=== PATIENT | female | born 1990 | race Caucasian/White ===

== ENCOUNTER → 2019-06-11 15:59 | Outpatient (CLI) | payer OTHER, SELFPAY ==
[2019-06-11 16:30] LABS: Add Manual Diff / Slide Review NO; Basophils Absolute Auto 0 /uL (0-100); Basophils Percent Auto 0.5 % (0-2); Eosinophils Absolute Auto 100 /uL (0-450); Eosinophils Percent Auto 1.6 % (2-4); Hematocrit 29.5 % (36-46); Hemoglobin 9.4 g/dL (12.0-16.0); Lymphocytes Absolute Auto 2100 /uL (1100-4500); Lymphocytes Percent Auto 23.8 % (25-40); Mean Corpuscular HGB Conc 31.8 % (30-36); Mean Corpuscular Hemoglobin 18.7 PG (26-34); Mean Corpuscular Volume 58.7 fL (80-100); Monocytes Absolute Auto 500 /uL (0-900); Monocytes Percent Auto 5.9 % (3-14); Neutrophils Absolute Auto 6100 /uL (1500-7000); Neutrophils Percent Auto 68.2 % (50-75); Platelet Count 267 X10^3/uL (150-400); Red Blood Cell Count 5.02 X10^6/uL (4.0-5.2); Red Cell Distribution Width 16.2 % (11.6-14.8); White Blood Cell Count 8.9 X10^3/uL (4.5-11.0)
[2019-06-11 17:05] LABS: Hypochromasia 1+; Microcytosis 3+; Ovalocytes 1+; Polychromasia 2+; Spherocytes 1+; Tear Drop Cells 1+
[2019-06-11 17:06] LABS: Poikilocytosis 2+
[2019-06-11 17:13] LABS: Appearance Urine UA CLEAR; Bilirubin Urine UA NEGATIVE (NEGATIVE); Color Urine UA YELLOW; Glucose Urine UA NEGATIVE (Negative); Ketones Urine UA NEGATIVE (NEGATIVE); Leukocyte Esterase Urine UA NEGATIVE (NEGATIVE); Nitrite Urine UA NEGATIVE (Negative); Occult Blood Urine UA NEGATIVE (Negative); Protein Urine UA NEGATIVE (Negative); Specific Gravity Urine UA <=1.005 (1.000-1.035); Urobilinogen Urine UA 0.2 E.U./dL (0.2)
[2019-06-11 17:37] LABS: Hepatitis B Surface Antigen NEGATIVE s/c (NEGATIVE); Rubella Antibody IgG 41.9 IU/mL (>15)
[2019-06-11 18:03] LABS: HIV 1 & 2 Ab/Ag 4th Gen Combo NEGATIVE (NEGATIVE); Hep C Virus Ab w/Reflex Quant NEGATIVE s/c (NEGATIVE)
[2019-06-13 17:29] LABS: RPR Screen Nonreactive (Nonreactive)
== END ==
PROVIDERS: PCP Obstetrics & Gynecology; Visit Provider Obstetrics & Gynecology
DX: Z34.01 Encounter for supervision of normal first pregnancy, first trimester (principal)
CPT/HCPCS: 36415; 80055; 81003; 86787; 86803; 86850; 86900; 86901; 87086; 87389

== ENCOUNTER → 2019-06-13 16:06 | Outpatient (CLI) | payer OTHER, SELFPAY ==
[2019-06-13 17:07] LABS: HEMOLYSIS < 15 (0-50); Iron 75 ug/dL (37-170)
[2019-06-13 17:20] LABS: Percent Iron Saturation 22 % (15-50); Total Iron Binding Capacity 348 ug/dL (265-497); Transferrin 290 mg/dL (206-381)
[2019-06-13 17:47] LABS: Ferritin 56.5 ng/mL (6.27-137)
[2019-06-17 18:49] LABS: Hematocrit 29.6 % (35.0-45.0); Hemoglobin 8.8 g/dL (11.7-15.5); MCH 18.7 pg (27.0-33.0); MCV 62.8 fL (80.0-100.0); RBC Total Count 4.71 Million/uL (3.80-5.10); RDW 17.5 % (11.0-15.0)
== END ==
PROVIDERS: PCP Obstetrics & Gynecology; Visit Provider Obstetrics & Gynecology
DX: O99.011 Anemia complicating pregnancy, first trimester (principal)
CPT/HCPCS: 36415; 82728; 83021; 83540; 83550; 85014; 85018; 85041

== ENCOUNTER → 2019-06-28 16:11 | Outpatient (CLI) | payer OTHER, SELFPAY ==
[2019-06-28 18:17] LABS: Vitamin B12 384 pg/mL (239-931)
[2019-07-03 19:01] LABS: Brief History NTD NO; Calc Gestational Age 15.6; Cigarette Smoker NO; Collection Date 110119; Donated Egg NO; Donor Egg Age NO; Estriol, Free 0.83 ng/mL; Inhibin A, Dimeric 74 pg/mL; Maternal Weight 184 lbs; Number of Fetuses 1; Previous Pregnancy Down Syndro NO; hCG, MoM 0.62; hCG, Serum 20.8 IU/mL
== END ==
PROVIDERS: PCP Obstetrics & Gynecology; Visit Provider Obstetrics & Gynecology
DX: Z34.02 Encounter for supervision of normal first pregnancy, second trimester (principal); Z3A.16 16 weeks gestation of pregnancy; D56.3 Thalassemia minor
CPT/HCPCS: 36415; 82105; 82607; 82677; 84702; 86336

== ENCOUNTER → 2019-08-02 10:37 | Outpatient (CLI) | payer OTHER, SELFPAY ==
--- NOTE | 2019-08-02 10:39 | DI.US.S_ITS ---
PROCEDURE: US OB >= 14 WEEKS FETUS INDICATIONS: ANATOMY OUTSIDE/PRIOR DATING DATA: First dating scan (date and location): 08/02/19. Estimated date of delivery (LINO) from first dating scan: 12/13/19. TECHNIQUE: Real-time scanning was performed of the fetus, with image documentation and biometric measurements. COMPARISON: [facility], , OB >= 14 WEEKS FETUS, 07/17/2019, 16:21. FINDINGS: General: A single living intrauterine gestation is present. Presentation: Breech. Placenta: Placental position is posterior, and low lying with the inferior edge of the placenta 2.6 cm above the internal cervical os. Amniotic fluid index: 10.5 cm, normal range is 5-24 cm. heart rate: 141 beats per minute. Maternal cervical canal: 3.5 cm long. Normal lower limit is 2.5 cm. biometrics: Biparietal diameter: 20 weeks 4 days Head circumference: 20 weeks 6 days Abdominal circumference: 21 weeks Femur length: 21 weeks 3 days Estimated gestational age from initial scan: not applicable. Composite gestational age from present scan: 21 weeks 0 days Estimated weight and percentile: 406 g Measurement variability for biometric dating: +/- 7 days from 14 weeks to 15 weeks 6 days gestation, +/- 10 days from 16 weeks to 21 weeks 6 days gestation, +/- 2 weeks from 22 weeks to 27 weeks 6 days gestation, +/- 3 weeks for 28 weeks gestation or later. weight reference: 4500 g or EFW >90/95% is considered macrosomia or large for gestational age. EFW <10% is small for gestational age. EFW 5% or less is considered intra-uterine growth restriction. Anatomic survey: Neuro: Ventricles are non-dilated at less than 10 mm. Cisterna magna is normal at 3-11 mm. Cerebellum is normal in size and morphology. Nuchal skin fold: Normal at less than 6 mm between 14-21 weeks gestational age. Face: Nose and lips, facial profile are normal. Spine: Not well-visualized. Heart: 4-chambered heart is present, with normal ventricular outflow tracts. Diaphragm: Diaphragm is intact. Stomach: Left-sided stomach is present. Kidneys: No hydronephrosis. Normal is less than 5 mm in 2nd trimester, less than 7 mm in 3rd trimester. Cord: 3-vessel cord has orthotopic insertion. Bladder: Normal in size. Extremities: All 4 extremities identified. IMPRESSION: 1. Single living IUP with mean composite gestational age of 21 weeks 0 days corresponding to ultrasound LINO of 12/13/19. 2. spine not well visualized otherwise normal anatomy. 3. Low lying placenta. Followup recommended. Dictated by: Jesús BENDER Interpreted: Cassandra Gomez MD on 08/02/2019 at 12:55 Approved by: Cassandra Gomez M.D. on 08/02/2019 at 14:58
== END ==
PROVIDERS: PCP Obstetrics & Gynecology; Visit Provider Obstetrics & Gynecology
DX: Z34.92 Encounter for supervision of normal pregnancy, unspecified, second trimester (principal); Z3A.21 21 weeks gestation of pregnancy
CPT/HCPCS: 76811

== ENCOUNTER → 2019-09-16 12:28 | Outpatient (CLI) | payer OTHER, SELFPAY ==
--- NOTE | 2019-09-16 12:29 | DI.US.S_ITS ---
PROCEDURE: US OB FOLLOW UP INDICATIONS: FOLLOW-UP L/S SPINE OUTSIDE/PRIOR DATING DATA: First dating scan (date and location): 08/02/19. Estimated date of delivery (LINO) from first dating scan: 12/13/19.. TECHNIQUE: Real-time scanning was performed of the fetus, with image documentation and biometric measurements. Endovaginal scanning: No COMPARISON: [facility], OB >= 14 WEEKS FETUS, 08/02/2019, 10:55. FINDINGS: General: A single living intrauterine gestation is present. Presentation: Vertex. Placenta: Placental position is posterior, and low lying. Amniotic fluid index: 14.1 cm, normal range is 5-24 cm. heart rate: 141 beats per minute. Maternal cervical canal: 3.5 cm long. Normal lower limit is 2.5 cm. Other: Normal spine. IMPRESSION: 1. Single living IUP redemonstrated. 2. Normal appearance of the spine. 3. Low lying placenta is redemonstrated with the inferior margin of the placenta 1.3 cm and the internal cervical os. Follow up recommended. Dictated by: Jesús Rivera [place] Interpreted: Thad Martinez MD on 09/16/2019 at 13:40 Approved by: Thad Martinez M.D. on 09/16/2019 at 20:54
== END ==
PROVIDERS: PCP Obstetrics & Gynecology; Visit Provider Obstetrics & Gynecology
DX: Z36.2 Encounter for other antenatal screening follow-up (principal); O44.42 Low lying placenta NOS or without hemorrhage, second trimester; Z3A.27 27 weeks gestation of pregnancy
CPT/HCPCS: 76816

== ENCOUNTER → 2019-09-17 16:04 | Outpatient (CLI) | payer OTHER, SELFPAY ==
[2019-09-17 17:54] LABS: Hemoglobin 7.8 g/dL (12.0-16.0)
[2019-09-17 18:15] LABS: GTT (PREG) 1 Hour PP 50gm Dose 154 mg/dL (76-139)
[2019-09-17 18:29] LABS: Hypochromasia 2+; Microcytosis 3+; Polychromasia 1+; Tear Drop Cells 2+
== END ==
PROVIDERS: PCP Obstetrics & Gynecology; Visit Provider Obstetrics & Gynecology
DX: Z34.02 Encounter for supervision of normal first pregnancy, second trimester (principal)
CPT/HCPCS: 36415; 82950; 85014; 85018

== ENCOUNTER → 2019-09-26 07:07 | Outpatient (CLI) | payer OTHER, SELFPAY ==
[2019-09-26 08:30] LABS: HEMOLYSIS < 15 (0-50); Iron 130 ug/dL (37-170)
[2019-09-26 08:31] LABS: Glucose Fasting Gestational 78 mg/dL (76-95)
[2019-09-26 08:42] LABS: Percent Iron Saturation 35 % (15-50); Total Iron Binding Capacity 372 ug/dL (265-497); Transferrin 328 mg/dL (206-381)
[2019-09-26 10:00] LABS: Glucose 1 Hour Gest 165 mg/dL (76-180)
[2019-09-26 10:42] LABS: Glucose Tol Interp,Gestational INTERPRETATION
[2019-09-26 11:15] LABS: Glucose 2 Hour Gest 137 mg/dL (76-155)
[2019-09-26 11:23] LABS: Glucose 3 Hour Gest 97 mg/dL (76-140)
== END ==
PROVIDERS: Visit Provider Obstetrics & Gynecology
DX: D56.3 Thalassemia minor (principal); O99.012 Anemia complicating pregnancy, second trimester; R73.09 Other abnormal glucose; Z34.92 Encounter for supervision of normal pregnancy, unspecified, second trimester
CPT/HCPCS: 36415; 82951; 82952; 83540; 83550

== ENCOUNTER → 2019-10-04 16:27 | Outpatient (CLI) | payer OTHER, SELFPAY ==
[2019-10-04 18:19] LABS: Add Manual Diff / Slide Review NO; Basophils Absolute Auto 0 /uL (0-100); Basophils Percent Auto 0.3 % (0-2); Eosinophils Absolute Auto 100 /uL (0-450); Eosinophils Percent Auto 1.5 % (2-4); Hematocrit 27.9 % (36-46); Lymphocytes Absolute Auto 2700 /uL (1100-4500); Mean Corpuscular HGB Conc 32.3 % (30-36); Mean Corpuscular Hemoglobin 19.3 PG (26-34); Mean Corpuscular Volume 59.8 fL (80-100); Monocytes Absolute Auto 500 /uL (0-900); Monocytes Percent Auto 5.5 % (3-14); Neutrophils Absolute Auto 6200 /uL (1500-7000); Neutrophils Percent Auto 64.7 % (50-75); Platelet Count 250 X10^3/uL (150-400); Red Blood Cell Count 4.67 X10^6/uL (4.0-5.2); Red Cell Distribution Width 16.3 % (11.6-14.8); White Blood Cell Count 9.6 X10^3/uL (4.5-11.0)
[2019-10-04 18:26] LABS: Aspartate Aminotransferase 27 IU/L (14-36); Blood Urea Nitrogen 9 mg/dL (7-17); Estimated Glomerular Filt Rate > 60.0 mL/min (>60); Uric Acid 4.2 mg/dL (2.5-6.2)
[2019-10-04 18:35] LABS: Anisocytosis 2+; Hypochromasia 1+; Poikilocytosis 2+; Tear Drop Cells 2+
[2019-10-04 18:54] LABS: Creatinine Urine Random 23.2 mg/dL; Protein (Total) Urine Random 11 mg/dL (0-12); Protein Creatinine Ratio Urine 0.47 GRAM/24H
[2019-10-04 19:00] LABS: Ferritin 21.5 ng/mL (6.27-137)
== END ==
PROVIDERS: Referring Provider Obstetrics & Gynecology; Visit Provider Obstetrics & Gynecology
DX: D56.3 Thalassemia minor (principal)
CPT/HCPCS: 36415; 82570; 82728; 84156; 84450; 84550; 85025

== ENCOUNTER 2019-10-09 15:55 | Inpatient (IN) | payer OTHER, SELFPAY ==
--- NOTE | 2019-10-09 | DI.US.S_ITS ---
PROCEDURE: US OB LIMITED INDICATIONS: PREECLAMPSIA, FOR BPP AND GROWTH OUTSIDE/PRIOR DATING DATA: First dating scan (date and location): 08/02/19. Estimated date of delivery (LINO) from first dating scan: 12/13/19. TECHNIQUE: Real-time scanning was performed of the fetus, with image documentation and biometric measurements. Biophysical profile was also obtained. Endovaginal scanning: Not done. COMPARISON: [facility] OB >= 14 WEEKS FETUS, 07/17/2019, 16:21. [facility] OB >= 14 WEEKS FETUS, 08/02/2019, 10:55. [facility] OB FOLLOW UP, 09/16/2019, 13:01. FINDINGS: General: A single live intrauterine gestation is present. Presentation: Vertex. Placenta: Placental position is posterior, without previa. However, the inferior placental edge is seen 3.1 cm from the internal cervical os. Amniotic fluid index: 18.9 cm, normal range is 5-24 cm. heart rate: 133 beats per minute. Maternal cervical canal: 4.2 cm long. Normal lower limit is 2.5 cm. biometrics: Biparietal diameter: 7.7 cm equals 31 weeks 0 days Head circumference: 28.6 cm equals 31 weeks 3 days Abdominal circumference: 26.6 cm equals 30 weeks 5 days Femur length: 6 cm equals 31 weeks 1 day Estimated gestational age from initial scan: 30 weeks 5 days Composite gestational age from present scan: 30 weeks 6 days Estimated weight and percentile: 1673 g, 46% Measurement variability for biometric dating: +/- 7 days from 14 weeks to 15 weeks 6 days gestation, +/- 10 days from 16 weeks to 21 weeks 6 days gestation, +/- 2 weeks from 22 weeks to 27 weeks 6 days gestation, +/- 3 weeks for 28 weeks gestation or later. weight reference: 4500 g or EFW >90/95% is considered macrosomia or large for gestational age. EFW <10% is small for gestational age. EFW 5% or less is considered intra-uterine growth restriction. Biophysical profile: Tone: 2 points. Movement: 2 points. Respiration: 2 points. Largest pocket of fluid: 2 points. IMPRESSION: Normal biophysical profile, 8/8 points. Normal interval growth when compared to the prior ultrasound examination. There is no placenta previa, although the inferior edge of the placenta is seen 3.1 cm from the internal cervical os. Dictated by: Clarence Ovalle M.D. on 10/09/2019 at 16:44 Approved by: Clarence Ovalle M.D. on 10/09/2019 at 16:46
[2019-10-09 16:32] LABS: Add Manual Diff / Slide Review NO; Basophils Absolute Auto 0 /uL (0-100); Basophils Percent Auto 0.4 % (0-2); Eosinophils Absolute Auto 100 /uL (0-450); Eosinophils Percent Auto 1.3 % (2-4); Hematocrit 26.8 % (36-46); Hemoglobin 8.6 g/dL (12.0-16.0); Lymphocytes Absolute Auto 2400 /uL (1100-4500); Lymphocytes Percent Auto 23.1 % (25-40); Mean Corpuscular HGB Conc 32.1 % (30-36); Mean Corpuscular Hemoglobin 19.3 PG (26-34); Monocytes Absolute Auto 600 /uL (0-900); Monocytes Percent Auto 5.6 % (3-14); Neutrophils Absolute Auto 7200 /uL (1500-7000); Neutrophils Percent Auto 69.6 % (50-75); Platelet Count 210 X10^3/uL (150-400); Red Blood Cell Count 4.47 X10^6/uL (4.0-5.2); Red Cell Distribution Width 16.3 % (11.6-14.8); White Blood Cell Count 10.3 X10^3/uL (4.5-11.0)
[2019-10-09 16:49] LABS: Aspartate Aminotransferase 24 IU/L (14-36); Blood Urea Nitrogen 9 mg/dL (7-17); Estimated Glomerular Filt Rate > 60.0 mL/min (>60); Uric Acid 4.4 mg/dL (2.5-6.2)
[2019-10-09 16:50] LABS: Hypochromasia 2+; Microcytosis 2+; Poikilocytosis 2+; Polychromasia 2+; Tear Drop Cells 2+
[2019-10-09 16:51] LABS: Basophilic Stippling 2+
--- NOTE | 2019-10-09 17:52 | PM.OBHP.1 ---
OB HPI Date/Time Date of admission: 10/09/19 Date Patient Seen: 10/09/19 Time Patient Seen: 18:04 History of Present Condition Chief complaint: Observation : 1 Para: 0 Estimated Date of Delivery: 12/16/19 Estimated Gestational Age (weeks): 30 Narrative: This patient is a 28-year-old at 30 weeks 2 days by LMP concordant with 1st trimester ultrasound, presenting with preeclampsia without severe features. The patient presented for routine care, and was found to have new onset hypertension. The patient had no symptoms of -induced hypertension, her blood pressure resolved to normal on observation, and she was sent for outpatient preeclampsia labs. These results revealed proteinuria with no other abnormalities, and she was brought back to the clinic for blood pressure check. This was also elevated, meeting diagnostic criteria. She continues to have no headaches, visual changes, right upper quadrant pain, chest pain, trouble breathing, increased swelling, decreased movement, or other obstetrical complaints. The patient's preeclampsia labs are otherwise stable, and testing has been reassuring with a 10/10 BPP, TALA of 18, and EFW of 1673 g, 46 percentile. The patient's has been complicated by beta thalassemia trait, which runs in her family and was diagnosed on new OB labs. Her iron studies have been within normal limits, her hemoglobin has been largely stable, and she has been on folic acid supplementation since presenting for care, with the dose increased once this diagnosis was made. The patient had a low lying placenta that is since resolved. She has otherwise had adequate care with no abnormal findings. She has no other contributory medical, surgical, or family history. Indications Other reason(s) for admission: Preeclampsia without severe features History of Present care: good care Dating criteria: LMP confirmed by 1st trimester US Ultrasounds: normal 1st trimester US and normal mid trimester US Abnormal ultrasound findings: Low lying placenta, now resolved with placenta >3cm from cervical os Obstetrical complications: preeclampsia Medical complications: none Preadmission Labs Blood type: O (+) positive -: Antibody screen: negative, GBS status: unknown, HBsAG: negative, HIV: negative and RPR/VDLR: negative -: Chlamydia screen: not detected and Gonorrhea screen: not detected -: Rubella: immune HCAB: negative Quad screen: Normal Evaluation Evaluation Baseline heart rate: 125 Variability: Moderate (11-25) monitor accelerations: Present monitor decelerations: Absent Category of Tracing: I Laboratory results: Laboratory Tests 10/09/19 10/09/19 16:21 16:21 WBC 10.3 RBC 4.47 Hgb 8.6 L Hct 26.8 L MCV 60.0 L MCH 19.3 L MCHC 32.1 RDW 16.3 H Plt Count 210 Neut % (Auto) 69.6 Lymph % (Auto) 23.1 L [place] % (Auto) 5.6 Eos % (Auto) 1.3 L Baso % (Auto) 0.4 Neut # (Auto) 7200 H Lymph # (Auto) 2400 [place] # (Auto) 600 Eos # (Auto) 100 Baso # (Auto) 0 RBC Morphology See below Polychromasia 2+ H Hypochromasia 2+ H Poikilocytosis 2+ H Basophilic Stippling 2+ H Microcytosis 2+ H Tear Drop Cells 2+ H BUN 9 Creatinine 0.60 Estimated GFR > 60.0 BUN/Creatinine Ratio 15.0 Uric Acid 4.4 AST 24 Comments: BPP 06/06, cephalic presentation. TALA 18cm. Posterior placenta. EFW 1673g, 46% PFSH Medical History Beta thalassemia minor (Acute) Surgical History History of tonsillectomy (Acute) Meds Home Medications and Allergies Home Medications Medication Instructions Recorded Confirmed Type folic acid 1 mg tablet 5 mg PO DAILY #150 tab 06/18/19 06/18/19 Rx Allergies Allergy/AdvReac Type Severity Reaction Status Date / Time Penicillins Allergy Severe Severe Verified 06/13/19 17:41 Hives Review of Systems Constitutional Constitutional: Reports system reviewed and no additional complaints, except as documented Eyes Eyes: Reports system reviewed; no additional complaints, except as documented ENT Ears, Nose, Mouth, and Throat: Yes system reviewed; no additional complaints, except as documented Cardiovascular Cardiovascular: Reports system reviewed; no additional complaints, except as documented Respiratory Respiratory: Reports system reviewed and no additional complaints, except as documented Gastrointestinal Gastrointestinal: Reports system reviewed and no additional complaints, except as documented Genitourinary Genitourinary: Reports system reviewed and no additional complaints, except as documented Musculoskeletal Musculoskeletal: Reports system reviewed; no additional complaints, except as documented Neurologic Neurologic: Reports system reviewed and no additional complaints, except as documented Hematologic/Lymphatic Hematologic/Lymphatic: Reports system reviewed and no additional complaints, except as documented Exam Const General: cooperative, healthy appearing and comfortable Orientation: alert, awake and oriented x3 Eyes General: appearance normal, both eyes and all related structures Resp Effort & Inspection: normal respiratory effort Auscultation: clear to auscultation bilaterally Cardio Rate: regular rate Rhythm: regular rhythm GI Palpation: soft and No tender Skin General: no rashes or lesions noted Extrem General: pedal edema (1+) Right upper extremity: edema (trace) Left upper extremity: edema (trace) Objective Labs Result Diagrams: 10/09/19 16:21 10/09/19 16:21 Labs: Laboratory Results - last 24 hr 10/09/19 10/09/19 16:21 16:21 WBC 10.3 RBC 4.47 Hgb 8.6 L Hct 26.8 L MCV 60.0 L MCH 19.3 L MCHC 32.1 RDW 16.3 H Plt Count 210 Neut % (Auto) 69.6 Lymph % (Auto) 23.1 L [place] % (Auto) 5.6 Eos % (Auto) 1.3 L Baso % (Auto) 0.4 Neut # (Auto) 7200 H Lymph # (Auto) 2400 [place] # (Auto) 600 Eos # (Auto) 100 Baso # (Auto) 0 RBC Morphology See below Polychromasia 2+ H Hypochromasia 2+ H Poikilocytosis 2+ H Basophilic Stippling 2+ H Microcytosis 2+ H Tear Drop Cells 2+ H BUN 9 Creatinine 0.60 Estimated GFR > 60.0 BUN/Creatinine Ratio 15.0 Uric Acid 4.4 AST 24 Assessment and Plan Assessment and Plan Assessment and Plan narrative: This patient is a 28-year-old at 30 weeks 2 days with first-trimester dating, now meeting diagnostic criteria for preeclampsia without severe features. The patient has had multiple elevated blood pressures, and has proteinuria. The patient has otherwise reassuring status and stable labs, but given her early gestational age, clinical concern for progression to preeclampsia with severe features is high. As [facility] does not have a NICU, the patient is being transferred to [facility] for monitoring for severe features, as should she require delivery, she requires a higher level of care. Betamethasone administration will be deferred until after 's evaluation, with the plan as discussed with the patient for blood pressure monitoring, monitoring, and a 12 hour urine collection. The purpose of betamethasone and the pathophysiology and natural history of preeclampsia was discussed at length the patient, and all questions were answered. The plan was discussed with Dr. Sharp, of [facility]. -transfer to [facility] via ambulance -GBS swab collection deferred to accepting hospital Time Spent with Patient Total time spent with greater than 50% in coordination of care (as documented) at patient's floor/unit and/or counseling patient:: Greater than 35 minutes
[2019-10-09 20:40] VITALS: BP 119/79; PULSE 76; RESP 16; TEMP 36.7
== END 2019-10-09 20:20 | disposition home or self-care (01) | DRG 833 ==
PROVIDERS: Admitting Provider Obstetrics & Gynecology; Referring Provider Obstetrics & Gynecology; Visit Provider Obstetrics & Gynecology
DX: O14.03 Mild to moderate pre-eclampsia, third trimester (principal); Z3A.30 30 weeks gestation of pregnancy; D56.3 Thalassemia minor
CPT/HCPCS: 36415; 59025; 59050; 76815; 84450; 84550; 85025; G0378; G0379

== ENCOUNTER 2019-11-08 14:43 | Outpatient (CLI) | payer OTHER, SELFPAY ==
--- NOTE | 2019-11-08 15:45 | PM.OBTRLD ---
Visit Information Visit Information Date of evaluation: 11/08/19 Primary OB Provider: Ele Mullins Comments/Additional reasons for admission: Patient is a 28yo @35 weeks gestation presenting for scheduled NST for gHTN, no obstetrical complaints. Vital Signs Vital Signs: 122/78, HR 69 PFSH Medical History Beta thalassemia minor (Acute) Surgical History History of tonsillectomy (Acute) Evaluation Evaluation Baseline heart rate: 125 Variability: Average (6-10) monitor accelerations: Present monitor decelerations: Absent Category of Tracing: I Diagnosis, Plan/Disposition Plan/Disposition Plan: Home with precautions, scheduled f/u. OB Disposition: home
== END 2019-11-08 15:40 | disposition home or self-care (01) ==
LOC: LABOR 14:55 → OB 11-11 11:51
PROVIDERS: Referring Provider Obstetrics & Gynecology; Visit Provider Obstetrics & Gynecology
DX: O13.3 Gestational [pregnancy-induced] hypertension without significant proteinuria, third trimester (principal); D56.3 Thalassemia minor; Z3A.34 34 weeks gestation of pregnancy
CPT/HCPCS: 59025; G0378; G0379

== ENCOUNTER → 2019-11-14 11:02 | Outpatient (CLI) | payer OTHER, SELFPAY ==
[2019-11-15 13:44] LABS: Strep Grp B PCR NEG for Grp B Strep
== END ==
PROVIDERS: Visit Provider Obstetrics & Gynecology
DX: Z34.03 Encounter for supervision of normal first pregnancy, third trimester (principal); Z3A.35 35 weeks gestation of pregnancy
CPT/HCPCS: 87653

== ENCOUNTER 2019-11-14 11:47 | Outpatient (CLI) | payer OTHER, SELFPAY | END 2019-11-14 12:40 | disposition home or self-care (01) | LOC: LABOR 12:00 → OB 14:35 | PROVIDERS: Referring Provider Obstetrics & Gynecology; Visit Provider Obstetrics & Gynecology | DX: O13.3 Gestational [pregnancy-induced] hypertension without significant proteinuria, third trimester (principal); D56.3 Thalassemia minor; Z3A.35 35 weeks gestation of pregnancy | CPT/HCPCS: 59025; 87653; G0378; G0379 ==

== ENCOUNTER 2019-11-22 10:34 | Outpatient (CLI) | payer OTHER, SELFPAY ==
--- NOTE | 2019-11-22 11:59 | P.TNLD_ITS ---
Visit Information Visit Information Date of evaluation: 11/22/19 Primary OB Provider: Ele Mullins Reason for Evaluation: Yes non-stress test Comments/Additional reasons for admission: This patient is a 28yo P0 diagnosed with gHTN, but with normal blood pressures since diagnoses and no medications, presenting for scheduled NST/BPP. Patient reports feeling well with no PIH symptoms and no complaints obstetrical or otherwise. Vital Signs Vital Signs: VSS, normotensive but with no transfer of VS to [facility]. [facility] Medical History Beta thalassemia minor (Acute) Surgical History History of tonsillectomy (Acute) Review of Systems Constitutional Constitutional: Reports system reviewed and no additional complaints, except as documented Cardiovascular Cardiovascular: Reports system reviewed; no additional complaints, except as documented Respiratory Respiratory: Reports system reviewed and no additional complaints, except as documented Exam GI Palpation: soft and No tender Evaluation Evaluation Baseline heart rate: 145 Variability: Moderate (11-25) monitor accelerations: Present monitor decelerations: Absent Category of Tracing: I Comments: BPP 10/10, TALA 10.3, cephalic Diagnosis, Plan/Disposition Plan/Disposition Plan: Reassuring and maternal status, patient discharged home with routine precautions. f/u in one week. OB Disposition: home
== END 2019-11-22 11:24 | disposition home or self-care (01) ==
LOC: LABOR 10:47 → OB 11-25 11:29
PROVIDERS: Referring Provider Obstetrics & Gynecology; Visit Provider Obstetrics & Gynecology
DX: O13.3 Gestational [pregnancy-induced] hypertension without significant proteinuria, third trimester (principal); D56.3 Thalassemia minor; Z3A.36 36 weeks gestation of pregnancy
CPT/HCPCS: 59025; 76815; G0378; G0379

== ENCOUNTER 2019-11-29 14:00 | Outpatient (CLI) | payer OTHER, SELFPAY ==
--- NOTE | 2019-11-29 14:07 | P.TNLD_ITS ---
Visit Information Visit Information Date of evaluation: 11/29/19 Primary OB Provider: Ele Mullins Reason for Evaluation: Yes non-stress test Comments/Additional reasons for admission: Scheduled NST for gestational hy pertension. Vital Signs Vital Signs: 122/60, HR 67 PFSH Medical History Beta thalassemia minor (Acute) Surgical History History of tonsillectomy (Acute) Social History Smoking Status: Former smoker Review of Systems Constitutional Constitutional: Reports system reviewed and no additional complaints, except as documented Evaluation Evaluation Baseline heart rate: 130 Variability: Moderate (11-25) monitor accelerations: Present monitor decelerations: Absent Category of Tracing: I Diagnosis, Plan/Disposition Plan/Disposition Plan: Home with precautions and routine follow up OB Disposition: home
== END 2019-11-29 14:36 | disposition home or self-care (01) ==
LOC: LABOR 14:43 → OB 12-02 10:56
PROVIDERS: Referring Provider Obstetrics & Gynecology; Visit Provider Obstetrics & Gynecology
DX: O16.3 Unspecified maternal hypertension, third trimester (principal); D56.3 Thalassemia minor; Z3A.37 37 weeks gestation of pregnancy
CPT/HCPCS: 59025; G0378; G0379

== ENCOUNTER 2019-12-06 11:01 | Outpatient (CLI) | payer OTHER, SELFPAY | END 2019-12-06 12:10 | disposition home or self-care (01) | LOC: LABOR 11:05 → OB 12-09 11:10 | PROVIDERS: Referring Provider Obstetrics & Gynecology; Visit Provider Obstetrics & Gynecology | DX: O13.3 Gestational [pregnancy-induced] hypertension without significant proteinuria, third trimester (principal); D56.3 Thalassemia minor; Z3A.38 38 weeks gestation of pregnancy | CPT/HCPCS: 59025; G0378; G0379 ==

== ENCOUNTER → 2019-12-10 15:49 | Outpatient (CLI) | payer OTHER, SELFPAY ==
[2019-12-11 03:09] LABS: COVID19 Sendout Not Detected (Not Detect)
== END ==
PROVIDERS: Visit Provider Registered Nurse
DX: Z34.90 Encounter for supervision of normal pregnancy, unspecified, unspecified trimester (principal)
CPT/HCPCS: 87635

== ENCOUNTER 2019-12-12 19:05 | Inpatient (IN) | payer OTHER, SELFPAY ==
[2019-12-12 19:27] VITALS: BP 137/85
[2019-12-12 20:24] LABS: Add Manual Diff / Slide Review NO; Basophils Absolute Auto 100 /uL (0-100); Basophils Percent Auto 0.8 % (0-2); Eosinophils Absolute Auto 100 /uL (0-450); Eosinophils Percent Auto 0.5 % (2-4); Hematocrit 29.2 % (36-46); Lymphocytes Absolute Auto 3000 /uL (1100-4500); Lymphocytes Percent Auto 24.1 % (25-40); Mean Corpuscular Hemoglobin 18.9 PG (26-34); Mean Corpuscular Volume 60.8 fL (80-100); Monocytes Absolute Auto 600 /uL (0-900); Monocytes Percent Auto 5.2 % (3-14); Neutrophils Absolute Auto 8700 /uL (1500-7000); Neutrophils Percent Auto 69.4 % (50-75); Platelet Count 208 X10^3/uL (150-400); Red Cell Distribution Width 15.9 % (11.6-14.8); White Blood Cell Count 12.5 X10^3/uL (4.5-11.0)
[2019-12-12 20:39] LABS: Aspartate Aminotransferase 28 IU/L (14-36); BUN Creatinine Ratio 18.8 (6-22); Blood Urea Nitrogen 12 mg/dL (7-17); Estimated Glomerular Filt Rate > 60.0 mL/min (>60); Uric Acid 5.7 mg/dL (2.5-6.2)
[2019-12-12 20:46] LABS: Anisocytosis 2+; Microcytosis 2+; Poikilocytosis 3+
[2019-12-12 20:47] LABS: Ovalocytes 1+; Schistocytes 1+; Tear Drop Cells 2+
[2019-12-12] MEDS: CALCIUM CARBONATE 500 MG TAB 1000 MG PO (21:00)
[2019-12-12] MEDS: DINOPROSTONE VAG (CERVIDIL) 10 MG VAG (21:01)
[2019-12-12 23:36] LABS: Creatinine Urine Random 50.4 mg/dL; Protein (Total) Urine Random 15 mg/dL (0-12); Protein Creatinine Ratio Urine 0.29 GRAM/24H
[2019-12-13 05:31] VITALS: BP 137/85
--- NOTE | 2019-12-13 08:52 | PM.OBHP.1 ---
OB HPI Date/Time Date of admission: 12/12/19 Date Patient Seen: 12/13/19 Time Patient Seen: 08:54 History of Present Condition Chief complaint: observation of labor : 1 Para: 0 Estimated Date of Delivery: 12/16/19 Estimated Gestational Age (weeks): 39 Narrative: Stella Fuller is a 28 year old @39+4 with a c/b gHTN not requiring medications, admitted for induction of labor. The patient reports feeling well with no complaints obstetrical or otherwise, and underwent 12 hours of cervical ripening with cervidil. She began gaston painfully this morning as often as q2, though she has no LOF, no VB, and has normal movement. She has had no PIH symptoms throughout. Her gHTN diagnosis was based on elevated BPs at 30 weeks, with an elevated urine protein/creatinine ratio but normal 24 hour urine and normal evaluation by [facility]. Her testing and BPs have been normal since, with an AGA fetus and weekly NST/BPPs. She has a history of beta thalassemia trait, with stable hgbs throughout the with normal iron levels and extra folate supplementation. She has no other contributory medical or surgical history. Indications Indication for induction OB: medical complication (gHTN) History of Present care: good care Dating criteria: LMP confirmed by 1st trimester US Ultrasounds: normal mid trimester US Obstetrical complications: gestational hypertension Medical complications: none Preadmission Labs Blood type: O (+) positive -: Antibody screen: negative, GBS status: negative, HBsAG: negative, HIV: negative and RPR/VDLR: negative -: Rubella: immune Quad screen: Normal 1 hr GTT: 154 3 hr GTT: 3 hr (0/4 elevated) Evaluation Evaluation Baseline heart rate: 130 Variability: Moderate (11-25) monitor accelerations: Present monitor decelerations: Absent Contraction Frequency (minutes): 3 Uterine Contraction Intensity: Strong/Firm Category of Tracing: I Cervical dilation (cm): 3 Cervical effacement (%): 100 station: -2 Laboratory results: Laboratory Tests 12/12/19 12/12/19 12/12/19 20:15 20:15 20:15 WBC 12.5 H Cancelled RBC 4.80 Cancelled Hgb 9.0 L Cancelled Hct 29.2 L Cancelled MCV 60.8 L Cancelled MCH 18.9 L Cancelled MCHC 31.0 Cancelled RDW 15.9 H Cancelled Plt Count 208 Cancelled Neut % (Auto) 69.4 Cancelled Lymph % (Auto) 24.1 L Cancelled [place] % (Auto) 5.2 Cancelled Eos % (Auto) 0.5 L Cancelled Baso % (Auto) 0.8 Cancelled Neut # (Auto) 8700 H Cancelled Lymph # (Auto) 3000 Cancelled [place] # (Auto) 600 Cancelled Eos # (Auto) 100 Cancelled Baso # (Auto) 100 Cancelled RBC Morphology See below Poikilocytosis 3+ H Anisocytosis 2+ H Microcytosis 2+ H Tear Drop Cells 2+ H Ovalocytes 1+ H Schistocytes 1+ H BUN 12 Creatinine 0.64 Estimated GFR > 60.0 BUN/Creatinine Ratio 18.8 Uric Acid 5.7 AST 28 U Random Total Protein Urine Creatinine Protein/Creatinin Ratio Blood Type Antibody Screen 12/12/19 12/12/19 20:15 23:14 WBC RBC Hgb Hct MCV MCH MCHC RDW Plt Count Neut % (Auto) Lymph % (Auto) [place] % (Auto) Eos % (Auto) Baso % (Auto) Neut # (Auto) Lymph # (Auto) [place] # (Auto) Eos # (Auto) Baso # (Auto) RBC Morphology Poikilocytosis Anisocytosis Microcytosis Tear Drop Cells Ovalocytes Schistocytes BUN Creatinine Estimated GFR BUN/Creatinine Ratio Uric Acid AST U Random Total Protein 15 H Urine Creatinine 50.4 Protein/Creatinin Ratio 0.29 Blood Type O Positive Antibody Screen Negative [facility] Medical History Beta thalassemia minor (Acute) Surgical History History of tonsillectomy (Acute) Social History Smoking Status: Former smoker Meds Home Medications and Allergies Home Medications Medication Instructions Recorded Confirmed Type folic acid 1 mg tablet 5 mg PO DAILY #150 tab 06/18/19 06/18/19 Rx Double Electric breast Pump and #1 each 11/27/19 Rx Supplies Allergies Allergy/AdvReac Type Severity Reaction Status Date / Time Penicillins Allergy Severe Severe Verified 06/13/19 17:41 Hives Review of Systems Constitutional Constitutional: Reports system reviewed and no additional complaints, except as documented Cardiovascular Cardiovascular: Reports system reviewed; no additional complaints, except as documented Respiratory Respiratory: Reports system reviewed and no additional complaints, except as documented Gastrointestinal Gastrointestinal: Reports system reviewed and no additional complaints, except as documented Genitourinary Genitourinary: Reports system reviewed and no additional complaints, except as documented Exam Vital Signs (past 8 hours): 107/69, HR 65, T 36.5C- 12/13/19 05:31 Blood Pressure 137/85 Const General: cooperative, healthy appearing and other (Uncomfortable with freqeuent contractions) External Female Exam: external appearance normal Other: cervidil removed, membranes intact, no VB Objective Labs Result Diagrams: 12/13/19 09:49 12/12/19 20:15 Labs: Laboratory Results - last 24 hr 12/12/19 12/12/19 12/12/19 20:15 20:15 20:15 WBC 12.5 H Cancelled RBC 4.80 Cancelled Hgb 9.0 L Cancelled Hct 29.2 L Cancelled MCV 60.8 L Cancelled MCH 18.9 L Cancelled MCHC 31.0 Cancelled RDW 15.9 H Cancelled Plt Count 208 Cancelled Neut % (Auto) 69.4 Cancelled Lymph % (Auto) 24.1 L Cancelled [place] % (Auto) 5.2 Cancelled Eos % (Auto) 0.5 L Cancelled Baso % (Auto) 0.8 Cancelled Neut # (Auto) 8700 H Cancelled Lymph # (Auto) 3000 Cancelled [place] # (Auto) 600 Cancelled Eos # (Auto) 100 Cancelled Baso # (Auto) 100 Cancelled RBC Morphology See below Poikilocytosis 3+ H Anisocytosis 2+ H Microcytosis 2+ H Tear Drop Cells 2+ H Ovalocytes 1+ H Schistocytes 1+ H BUN 12 Creatinine 0.64 Estimated GFR > 60.0 BUN/Creatinine Ratio 18.8 Uric Acid 5.7 AST 28 U Random Total Protein Urine Creatinine Protein/Creatinin Ratio Blood Type Antibody Screen 12/12/19 12/12/19 20:15 23:14 WBC RBC Hgb Hct MCV MCH MCHC RDW Plt Count Neut % (Auto) Lymph % (Auto) [place] % (Auto) Eos % (Auto) Baso % (Auto) Neut # (Auto) Lymph # (Auto) [place] # (Auto) Eos # (Auto) Baso # (Auto) RBC Morphology Poikilocytosis Anisocytosis Microcytosis Tear Drop Cells Ovalocytes Schistocytes BUN Creatinine Estimated GFR BUN/Creatinine Ratio Uric Acid AST U Random Total Protein 15 H Urine Creatinine 50.4 Protein/Creatinin Ratio 0.29 Blood Type O Positive Antibody Screen Negative Assessment and Plan Assessment and Plan Assessment and Plan narrative: This patient presents for induction of labor for gestational hypertension, now gaston regularly after her cervidil and desiring epidural. Patient to receive epidural, will reassess contraction pattern and start pitocin if necessary with plan for AROM later in morning. - cEFM, toco - labs drawn on admission, c/w patient's baseline with no signs of PIH - pitocin per protocol - epidural soon
[2019-12-13] MEDS: LACTATED RINGERS 1,000 ML 100 ML IV ×3 (09:00→14:30)
[2019-12-13] MEDS: FENT 2MCG/ML BUPIV 0.125% EPI 200 MCG/100 ML PLAST..BAG 6 MCG EPIDURAL ×2 (09:35→15:28)
[2019-12-13 09:56] LABS: Platelet Count 174 X10^3/uL (150-400)
[2019-12-13] MEDS: CALCIUM CARBONATE 500 MG TAB 1000 MG PO (10:36)
[2019-12-13] MEDS: OXYTOCIN PREMIX 30 UNIT/500 ML PLAST..BAG IV (10:40)
--- NOTE | 2019-12-13 12:10 | PM.OBPNLAB ---
Date/Time Date Patient Seen: 12/13/19 Time Patient Seen: 12:10 Pain Control Pain control: epidural Pelvic Exam Dilation (cm): 5 Effacement (%): 100 station: -1 Amniotic membrane status: Ruptured (SROM, clear, just prior to prolonged decel) Contractions Pitocin rate (mU/min): 3 Contraction frequency (min): 3 Contraction pattern: Regular Contraction intensity: Strong/Firm Status status: Category ll Heart Rate Baseline: 130 Monitor Accelerations: Present Monitor Decelerations: Prolonged Monitor Variability: Moderate Comments: prolonged decel at time of SROM, spontaneously resolved to cat 1 EFM Assessment and Plan Assessment: induction ongoing Plan: continuous present management
--- NOTE | 2019-12-13 14:25 | PM.OBPNLAB ---
Date/Time Date Patient Seen: 12/13/19 Time Patient Seen: 14:25 Pain Control Pain control: epidural Pelvic Exam Dilation (cm): 8 Effacement (%): 100 station: -1 Amniotic membrane status: Ruptured (SROM, clear, just prior to prolonged decel) Contractions Pitocin rate (mU/min): 5 Contraction frequency (min): 3 Contraction pattern: Regular Contraction intensity: Strong/Firm Status status: Category ll Heart Rate Baseline: 130 Monitor Accelerations: Present Monitor Decelerations: Variable (x1) Monitor Variability: Moderate Assessment and Plan Assessment: induction ongoing Plan: continuous present management
--- NOTE | 2019-12-13 17:09 | PM.OBPNLAB ---
Date/Time Date Patient Seen: 12/13/19 Time Patient Seen: 17:10 Pelvic Exam Dilation (cm): 9 Effacement (%): 100 station: -1 Amniotic membrane status: Ruptured (SROM, clear, just prior to prolonged decel) Contractions Pitocin rate (mU/min): 7 Contraction frequency (min): 3 Contraction pattern: Regular Contraction intensity: Strong/Firm Status status: Category ll Heart Rate Baseline: 135 Monitor Accelerations: Present (+scalp stim) Monitor Decelerations: Variable Monitor Variability: Moderate Assessment and Plan Assessment: induction ongoing Plan: continuous present management Comments: THANH presentation, mildly asynclitic. For high fowlers and pitocin per protocol.
--- NOTE | 2019-12-13 20:09 | P.PCNOB_ITS ---
Events: Induced HTN Labor & Delivery Delivery date: 12/13/19 Intrapartal events: Prolonged Active Phase, Acceleration and Deceleration Cervical ripening method: per Cervidil protocol Induction method: per pitocin protocol Delivery monitor: external FHT and external uterine Route of delivery: L&D Laceration Description: Perineal - 2nd Degree Delivery repair: vicryl Estimated blood loss (mL): 150 Anesthesia type: Epidural Narrative: This patient is a 28yo now P1 PPD#0 s/p after IOL for gHTN. The patient underwent cervical ripening with cervidil, then induction with pitocin with SROM for clear fluid at 5cm dilation. Her course was complicated by occasional prolonged, variable, and late decelerations, though with reassuring tracing the large majority of the time with accels, +scalp stim and moderate variability. The patient progressed to fully dilated and had a 20 minute 2nd stage, with a tight nuchal cord clamped and cut at the perineum. The shoulders delivered with ease, and she was delivered of a healthy baby boy, apgars 9+9, weight 7#14. A 2nd degree perineal laceration was repaired with 3-0 vicryl in the usual fashion. There were no immediate complications. [place] Baby Trace: Infant gender: Male Presentation: vertex position: Right Occiput Anterior Placenta delivery description: Spontaneous cord vessel description: Nuchal Cord (tight, 3 vessel) score (1 min): 9 score (5 min): 9 Plan for aftercare: Routine care. 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
[2019-12-13] MEDS: DERMOPLAST SPRAY 20% 60 ML 1 SPRAY TOP (21:37)
[2019-12-13] MEDS: IBUPROFEN 600 MG TABLET PO (21:37)
[2019-12-13] MEDS: LANOLIN OINT 7 GM 1 APPLIC TOP (22:27)
[2019-12-14] MEDS: IBUPROFEN 600 MG TABLET PO ×3 (04:30→15:57)
[2019-12-14 06:21] LABS: Hematocrit 25.9 % (36-46); Hemoglobin 8.3 g/dL (12.0-16.0)
--- NOTE | 2019-12-14 10:14 | P.PNOB_ITS ---
Subjective - OB Subjective Patient comments: no complaints, pain well controlled, tolerating diet and flatus present baby status: doing well and nursing well [place] feeding status: exclusively breast feeding Narrative: Patient is PPD#1 s/p after IOL for gHTN. Patient is doing well this AM, voiding, ambulating, mild lochia, good pain control with motrin, passing flatus and . No acute blood loss anemia symptoms, hgb 8.3 from 9.0 in the setting of beta thal trait with normal iron studies. No PIH symptoms and BPs largely 110s/60s-70s overnight. Date Patient Seen: 12/14/19 Time Patient Seen: 10:15 Exam Vital Signs (past 8 hours): 119/68, HR 64, T 99.4 Const General: cooperative, healthy appearing, comfortable and well developed Resp Effort & Inspection: normal respiratory effort Auscultation: clear to auscultation bilaterally Cardio Rate: regular rate Rhythm: regular rhythm GI Palpation: soft and No tender External Female Exam: external appearance normal and exteral laceration (well approximated, no erythema or drainage, no swelling) Skin General: no rashes or lesions noted Objective Labs Result Diagrams: 12/14/19 06:10 12/12/19 20:15 Labs: Laboratory Results - last 24 hr 12/14/19 06:10 Hgb 8.3 L Hct 25.9 L Assessment & Plan Assessment and Plan (1) Vaginal delivery: Status: Acute Current Visit: Yes Plan day: 1 plan OB: routine care Comments: This patient is recovering well, meeting goals appropriately with no complaints, no signs of PIH, and appropriate decrease in hemoglobin. Patient to continue taking PNVs containing iron and folic acid, and we discussed anemia precautions and PIH precautions for return as well as the usual precautions. Patient and partner vocalized understanding, and are encouraged to call the physician reducing salon attendant or the clinic with any symptoms or return to the ED with any emergencies. Time Spent With Patient Time: Total time spent is greater than 50% in coordination of care (as documented) at patient's floor/unit and/or counseling patient: Time with patient: 15-24 minutes
--- NOTE | 2019-12-14 10:22 | P.DS_ITS ---
Discharge Providers Provider Date of admission: 12/12/19 19:05 Discharge Date: 12/14/19 Consults: 12/14/19 20:07 Consult to Quality Review Trainer Routine Comment: Discharge provider: Ele Mullins MD Summary Discharge Diagnosis (1) Vaginal delivery: Status: Acute Problem Details: This patient presented for induction of labor at 39 weeks for gestational hypertension. The patient was induced with cervidil and pitocin, and was delivered of a healthy baby boy weighing 7#14 without complication. A 2nd degree perineal laceration was repaired in the usual fashion. The patient's recovery was uneventful without anemia symptoms or PIH symptoms, and the patient was discharged on PPD#1. Time Spent with Patient Time attestation: Total time spent providing and/or coordinating discharge services: Objective Labs Result Diagrams: 12/14/19 06:10 12/12/19 20:15 Labs: Laboratory Results - last 24 hr 12/14/19 06:10 Hgb 8.3 L Hct 25.9 L Exam Vital Signs (past 8 hours): see day of discharge progress note. Discharge Plan Discharge Plan Patient Disposition: Home Discharge orders & Medications Prescriptions: Continued (DME) Double Electric breast Pump and Supplies See Rx Instructions .ROUTE .MEDSUPPLY Qty: 1 RF: 0 folic acid 1 mg tablet 5 mg PO DAILY Qty: 150 RF: 6 Follow up/Referrals: Ele Mullins MD [Physician] - 6 Weeks ( visit) Diet/Activity/Treatments Diet: Regular Activity: Nothing in the vagina for 6 weeks. Avoid lifting more than 10 lbs for 6 weeks. Keep perineal stitches clean and dry. If you have increased bleeding, fevers, chills, abnormal discharge, difficulty voiding, headaches, visual changes, trouble breathing, dizziness, or any other symptoms or concerns, call or come to the emergency room. Skin/Wound/Dressing Care Report to your healthcare provider any signs of infection, such as:: chills, fever, night sweats, increased pain, unusual drainage and unusual redness Visit Report/Discharge Packet Instructions: DI for Labor and Delivery, Vaginal Discharge Data Attending Provider: Ele Mullins Admit Date/Time: 12/12/19 19:05
[2019-12-14 16:55] VITALS: BP 107/55; PULSE 78; RESP 16; TEMP 37.2
== END 2019-12-14 18:37 | disposition home or self-care (01) | DRG 807 ==
PROVIDERS: Anesthesiology; Admitting Provider Obstetrics & Gynecology; Referring Provider Obstetrics & Gynecology; Visit Provider Obstetrics & Gynecology
DX: O13.4 Gestational [pregnancy-induced] hypertension without significant proteinuria, complicating childbirth (principal); Z37.0 Single live birth; O63.1 Prolonged second stage (of labor); Z3A.39 39 weeks gestation of pregnancy; O70.1 Second degree perineal laceration during delivery; O69.81X0 Labor and delivery complicated by cord around neck, without compression, not applicable or unspecified
CPT/HCPCS: 01967; 36415; 59050; 59200; 59400; 82570; 84156; 84450; 84550; 85014; 85018; 85025; 85049; 86850; 86900; 86901; G0378; G0379; J2590